=== PATIENT | female | born 1995 | race Asian ===

== ENCOUNTER 2023-04-21 06:15 | Inpatient (IN) | payer BC ==
[~2023-04-21 06:15] MED LIST: CITRIC ACID/SODIUM CITRATE 30 ML UNIT-DOSE CUP PO ONE; ELECTROLYTE-148 SOLN 1,000 ML IV ONE; ELECTROLYTE-148 SOLN 1,000 ML IV SCH
[2023-04-21 06:57] VITALS: BMI 34.2
[2023-04-21] MEDS: ELECTROLYTE-148 SOLN 1,000 ML IV SCH (07:55)
[2023-04-21] MEDS ORDERED: METHYLERGONOVINE MALEATE 0.2 MG/1 ML AMP IM PRN (09:40)
[2023-04-21] MEDS ORDERED: ACETAMINOPHEN 325 MG TABLET (FP) PO PRN (09:40)
[2023-04-21] MEDS ORDERED: FENTANYL CITRATE/PF 50 MCG/ML VIAL ONE (09:45)
[2023-04-21] MEDS ORDERED: morphine SULFATE/PF 1 MG/2 ML (2cc Syringe - QUVA) ONE (09:45)
[2023-04-21] MEDS ORDERED: ONDANSETRON 4 MG/2 ML VIAL ONE (10:07)
[2023-04-21] MEDS ORDERED: DEXAMETHASONE SOD PHOSPHATE 4 MG/1 ML VIAL ONE (10:07)
[2023-04-21 10:58] LABS: CORD BASE EXCESS -3.8 mmol/L (0-2); CORD HCO3 23.7 mmHg (20-29); CORD PCO2 52.4 mmHg (30-78); CORD pH 7.274 (7.14-7.44)
[2023-04-21 11:01] LABS: CORD HCO3 25.1 mmHg (20-29); CORD PCO2 58.9 mmHg (30-78); CORD pH 7.248 (7.14-7.44)
[2023-04-21] MEDS ORDERED: OXYTOCIN 20 UNITS in 0.9% NS 20 UNIT/1,000 ML INFUS.BAG IV ONE (11:15)
[2023-04-21] MEDS: OXYTOCIN 20 UNITS in 0.9% NS 20 UNIT/1,000 ML INFUS.BAG IV SCH ×2 (11:20→23:28)
[2023-04-21] MEDS: ACETAMINOPHEN 1000 MG/100 ML BAG IVPB PRN ×2 (14:19→23:29)
[2023-04-21] MEDS ORDERED: ONDANSETRON 4 MG/2 ML VIAL IVPB PRN (15:05)
[2023-04-21] MEDS ORDERED: IBUPROFEN 800 MG/8 ML IJ IVPB PRN (19:55)
[2023-04-21] MEDS ORDERED: oxyCODONE HCL 5 MG TABLET PO PRN (21:41)
[2023-04-22 08:07] LABS: BASO % 0.5 % (0-2.0); EOS % 0.5 % (0-4.5); HEMATOCRIT 34.3 % (32.4-45.2); LYMPH % 18.8 % (8-40); MCHC 32.2 g/dl (32.0-36.0); MEAN PLT VOLUME 8.3 fl (7.5-11.1); MONO % 7.2 % (3.8-10.2); PLATELET COUNT 254 10^3/uL (134-434); RBC 3.81 M/mm3 (3.60-5.2); RDW 15.4 % (11.6-15.6); WHITE BLOOD COUNT 18.5 K/mm3 (4.0-10.0)
[2023-04-22] MEDS ORDERED: BISACODYL 10 MG SUPP.RECT RC PRN (09:41)
[2023-04-22] MEDS: IBUPROFEN 600 MG TABLET (FP) PO PRN ×2 (12:08→21:29)
[2023-04-22 13:46] LABS: POC NITRAZINE POS
[2023-04-22] MEDS: SIMETHICONE 80 MG TAB.CHEW (FP) PO PRN (21:29)
[2023-04-22 21:57] VITALS: RESP 18
[2023-04-23] MEDS: SIMETHICONE 80 MG TAB.CHEW (FP) PO PRN (20:11)
[2023-04-23] MEDS: IBUPROFEN 600 MG TABLET (FP) PO PRN (20:11)
[2023-04-24] MEDS: IBUPROFEN 600 MG TABLET (FP) PO PRN (06:22)
[2023-04-24] MEDS: SIMETHICONE 80 MG TAB.CHEW (FP) PO PRN (06:22)
[2023-04-24] MEDS: ELECTROLYTE-148 SOLN 1,000 ML IV SCH (07:40)
[2023-04-24 08:44] VITALS: BP 95/62; PULSE 69; TEMP 98.1
[2023-04-24 08:45] LABS: BASO % 0.6 % (0-2.0); EOS % 2.3 % (0-4.5); HEMATOCRIT 35.7 % (32.4-45.2); HEMOGLOBIN 11.5 GM/dL (10.7-15.3); LYMPH % 19.8 % (8-40); MCH 28.8 pg (25.7-33.7); MCHC 32.1 g/dl (32.0-36.0); MEAN CELL VOLUME 89.6 fl (80-96); MEAN PLT VOLUME 7.9 fl (7.5-11.1); MONO % 7.1 % (3.8-10.2); NEUT % 70.2 % (42.8-82.8); PLATELET COUNT 293 10^3/uL (134-434); RBC 3.99 M/mm3 (3.60-5.2); RDW 15.7 % (11.6-15.6); WHITE BLOOD COUNT 12.8 K/mm3 (4.0-10.0)
== END 2023-04-24 14:45 | disposition home or self-care (01) | DRG 788 ==
LOC: JLDR 06:15 → J3W 12:50
PROVIDERS: ADMIT Obstetrics & Gynecology; ATTEND Obstetrics & Gynecology
PROC: 10D00Z1 Extraction of Products of Conception, Low, Open Approach (ICD-10-PCS; principal; 2023-04-21)
DX: O32.1XX0 Maternal care for breech presentation, not applicable or unspecified (principal); O69.81X0 Labor and delivery complicated by cord around neck, without compression, not applicable or unspecified; Z3A.38 38 weeks gestation of pregnancy; Z37.0 Single live birth
CPT/HCPCS: 36415; 36600; 82803; 83986-QW; 85025; 88307-TC

== ENCOUNTER 2023-10-27 01:08 | Emergency (ER) | payer BC ==
[2023-10-27 01:15] VITALS: BMI 31.1
[2023-10-27] MEDS ORDERED: ACETAMINOPHEN INJECTION 100 ML IVPB ONE (02:05)
[2023-10-27] MEDS ORDERED: MAG HYDROX/AL HYDROX/SIMETH 30 ML UNIT-DOSE CUP ONE (02:05)
[2023-10-27] MEDS ORDERED: FAMOTIDINE 20 MG/50 ML IVPB 20 MG/50 ML MG IVPB ONE (02:06)
[2023-10-27] MEDS: MAG HYDROX/AL HYDROX/SIMETH 30 ML UNIT-DOSE CUP PO ONE (02:06)
[2023-10-27] MEDS: ACETAMINOPHEN 1000 MG/100 ML BAG IVPB ONE (02:07)
[2023-10-27 02:12] LABS: BASO % 0.8 % (0-2.0); EOS % 3.4 % (0-4.5); HEMOGLOBIN 12.3 GM/dL (10.7-15.3); LYMPH % 31.6 % (8-40); MCH 28.9 pg (25.7-33.7); MCHC 33.4 g/dl (32.0-36.0); MEAN CELL VOLUME 86.5 fl (80-96); MEAN PLT VOLUME 6.9 fl (7.5-11.1); MONO % 8.6 % (3.8-10.2); NEUT % 55.6 % (42.8-82.8); PLATELET COUNT 404 10^3/uL (134-434); RBC 4.28 M/mm3 (3.60-5.2); RDW 13.4 % (11.6-15.6); WHITE BLOOD COUNT 12.8 K/mm3 (4.0-10.0)
[2023-10-27 02:16] LABS: EPI CELLS >36 /uL (0-25.1); HYALINE CASTS 0 /uL (0-3.1); URINE APPEARANCE CLEAR; URINE BACTERIA 1153 /uL (0-1359); URINE BILIRUBIN NEGATIVE (NEGATIVE); URINE COLOR YELLOW; URINE GLUCOSE (UA) NEGATIVE (NEGATIVE); URINE KETONE NEGATIVE (NEGATIVE); URINE LEUK ESTERASE 1+ (NEGATIVE); URINE NITRITE NEGATIVE (NEGATIVE); URINE PROTEIN NEGATIVE (NEGATIVE); URINE RBC 37 /uL (0-23.9); URINE UROBILINOGEN 0.2 mg/dL (0.2-1.0); URINE WBC 82 /uL (0-25.8)
[2023-10-27] MEDS: FAMOTIDINE 20 MG/50 ML IVPB 20 MG/50 ML MG IVPB ONE (02:18)
[2023-10-27] MEDS: SODIUM CHLORIDE 1,000 ML IV STA (02:18)
[2023-10-27 02:31] LABS: POTASSIUM 3.7 mmol/L (3.5-5.1)
[2023-10-27 02:33] LABS: CALCIUM 8.9 mg/dL (8.5-10.1)
[2023-10-27 02:34] LABS: ALBUMIN 3.5 g/dl (3.4-5.0); BLOOD UREA NITROGEN 17.4 mg/dL (7-18)
[2023-10-27 02:38] LABS: TOT PROT 7.3 g/dl (6.4-8.2)
[2023-10-27 02:39] LABS: BILIRUBIN,TOTAL 0.2 mg/dL (0.2-1)
[2023-10-27 05:54] VITALS: BP 105/75; PULSE 62; RESP 18; TEMP 97.4
[2023-10-27] MEDS ORDERED: CEFTRIAXONE 1 GM/50 ML BAG ONE (06:00)
[2023-10-27] MEDS: CEFTRIAXONE 1,000 MG in DEXTROSE 5%-WATER - 50 ML IVPB ONE (06:05)
== END 2023-10-27 10:00 | disposition home or self-care (01) ==
LOC: JER 01:08
PROC: 3E03329 Introduction of Other Anti-infective into Peripheral Vein, Percutaneous Approach (ICD-10-PCS; principal; 2023-10-27)
PROC: 3E033GC Introduction of Other Therapeutic Substance into Peripheral Vein, Percutaneous Approach (ICD-10-PCS; 2023-10-27)
PROC: 3E033NZ Introduction of Analgesics, Hypnotics, Sedatives into Peripheral Vein, Percutaneous Approach (ICD-10-PCS; 2023-10-27)
DX: R10.13 Epigastric pain (principal); R11.10 Vomiting, unspecified; K80.80 Other cholelithiasis without obstruction; Z20.822 Contact with and (suspected) exposure to COVID-19
CPT/HCPCS: 0241U-QW; 36415; 74177-TC; 76705-TC; 80053; 81003; 83690; 83735; 84484; 84703; 85025; 87086; 93005; 93010; 99285-25; J0131

== ENCOUNTER 2023-11-12 04:15 | Day surgery (SDC) | payer BC ==
[2023-11-05 12:14] VITALS: BMI 31.1
[2023-11-12] MEDS ORDERED: CEFAZOLIN 2 GM in DEXTROSE 5%-WATER - 50 ML IVPB ONE (06:01)
[2023-11-12] MEDS ORDERED: ceFAZolin SODIUM 1 GM VIAL ONE (06:18)
[2023-11-12] MEDS ORDERED: PROPOFOL 40 ML ONE (07:25)
[2023-11-12] MEDS ORDERED: ONDANSETRON 4 MG/2 ML VIAL ONE ×2 (07:25→12:12)
[2023-11-12] MEDS ORDERED: LIDOCAINE HCL/PF 2% SDV 5ML VIAL ONE (07:25)
[2023-11-12] MEDS ORDERED: MIDAZOLAM HCL 2 MG/2 ML SINGLE DOSE VIAL ONE (07:26)
[2023-11-12] MEDS ORDERED: ACETAMINOPHEN INJECTION 100 ML IVPB ONE (07:28)
[2023-11-12] MEDS ORDERED: INDOCYANINE GREEN 25 MG/10 ML VIAL IVPUSH ONE (07:36)
[2023-11-12] MEDS ORDERED: BUPIVACAINE HCL/PF 0.5% (5MG/ML) 10 ML VIAL ONE (07:37)
[2023-11-12] MEDS ORDERED: oxyCODONE HCL 5 MG TABLET PO PRN (07:58)
[2023-11-12] MEDS ORDERED: ONDANSETRON 4 MG/2 ML VIAL IVPUSH PRN (07:58)
[2023-11-12] MEDS ORDERED: LACTATED RINGERS SOLUTION 1,000 ML IV SCH (08:00)
[2023-11-12] MEDS: ceFAZolin SODIUM 1 GM VIAL IVPB ONE (08:27)
[2023-11-12] MEDS ORDERED: ROCURONIUM BROMIDE 50 MG/5 ML SYRINGE ONE (08:42)
[2023-11-12] MEDS: BUPIVACAINE HCL/PF 0.5% (5 MG/ML) 30 ML VIAL IJ ONE ×2 (08:49)
[2023-11-12] MEDS ORDERED: SUGAMMADEX SODIUM 200 MG/2 ML VIAL ONE (09:49)
[2023-11-12] MEDS ORDERED: KETOROLAC TROMETHAMINE 30 MG/1 ML VIAL ONE (10:00)
[2023-11-12 12:54] VITALS: TEMP 97.8
[2023-11-12 14:07] VITALS: BP 94/60; PULSE 70; RESP 19
[2023-11-12] MEDS ORDERED: oxyCODONE HCL 5 MG TABLET ONE (15:01)
[2023-11-12] MEDS: oxyCODONE HCL 5 MG TABLET PO PRN (15:09)
== END 2023-11-12 15:38 | disposition home or self-care (01) ==
LOC: JASU-SURG 04:15
PROVIDERS: ATTEND Surgery
PROC: 8E0W4CZ Robotic Assisted Procedure of Trunk Region, Percutaneous Endoscopic Approach (ICD-10-PCS; 2023-11-12)
PROC: 0FT44ZZ Resection of Gallbladder, Percutaneous Endoscopic Approach (ICD-10-PCS; principal; 2023-11-12 08:00)
DX: K80.10 Calculus of gallbladder with chronic cholecystitis without obstruction (principal)
CPT/HCPCS: 47562; S2900; 81025; 88304-TC; 94760; J0131

== ENCOUNTER 2024-03-23 20:41 | Emergency (ER) | payer BC ==
[2024-03-23 20:49] VITALS: BMI 31.1
[2024-03-23] MEDS ORDERED: ACETAMINOPHEN INJECTION 100 ML IVPB ONE (22:07)
[2024-03-23] MEDS ORDERED: FAMOTIDINE 20 MG/50 ML IVPB 20 MG/50 ML MG IVPB ONE (22:07)
[2024-03-23 22:18] LABS: BASO % 0.3 % (0-2.0); EOS % 0.1 % (0-4.5); HEMATOCRIT 38.6 % (32.4-45.2); LYMPH % 11.2 % (8-40); MCH 28.7 pg (25.7-33.7); MCHC 33.7 g/dl (32.0-36.0); MEAN CELL VOLUME 85.4 fl (80-96); MEAN PLT VOLUME 6.8 fl (7.5-11.1); MONO % 4.9 % (3.8-10.2); NEUT % 83.5 % (42.8-82.8); PLATELET COUNT 412 10^3/uL (134-434); RBC 4.53 M/mm3 (3.60-5.2); RDW 13.9 % (11.6-15.6); WHITE BLOOD COUNT 19.9 K/mm3 (4.0-10.0)
[2024-03-23] MEDS: ACETAMINOPHEN 1000 MG/100 ML BAG IVPB ONE (22:19)
[2024-03-23] MEDS: FAMOTIDINE 20 MG/50 ML IVPB 20 MG/50 ML MG IVPB ONE (22:19)
[2024-03-23 22:21] LABS: PH,URINE >= 9.0 (5.0-8.0); URINE APPEARANCE TURBID; URINE BILIRUBIN NEGATIVE (NEGATIVE); URINE COLOR YELLOW; URINE GLUCOSE (UA) NEGATIVE (NEGATIVE); URINE KETONE NEGATIVE (NEGATIVE); URINE LEUK ESTERASE NEGATIVE (NEGATIVE); URINE NITRITE NEGATIVE (NEGATIVE); URINE PROTEIN NEGATIVE (NEGATIVE); URINE UROBILINOGEN 0.2 mg/dL (0.2-1.0)
[2024-03-23 22:27] LABS: INR 1.13 (0.83-1.09); PROTHROMBIN TIME (PATIENT) 12.9 SEC (9.7-13.0)
[2024-03-23 22:39] LABS: POTASSIUM 3.7 mmol/L (3.5-5.1)
[2024-03-23] MEDS ORDERED: MORPHINE SULFATE 2 MG/ML SYRINGE ONE (22:39)
[2024-03-23 22:41] LABS: CALCIUM 8.9 mg/dL (8.5-10.1)
[2024-03-23 22:42] LABS: ALBUMIN 3.8 g/dl (3.4-5.0); BLOOD UREA NITROGEN 8.2 mg/dL (7-18)
[2024-03-23 22:45] LABS: CREATININE 0.8 mg/dL (0.55-1.3)
[2024-03-23 22:46] LABS: BILIRUBIN,TOTAL 0.4 mg/dL (0.2-1); TOT PROT 7.7 g/dl (6.4-8.2)
[2024-03-23] MEDS: morphine CARPU-JECT 2 MG/1 ML DISP.SYRIN IVPUSH ONE (22:47)
[2024-03-23] MEDS ORDERED: SUCRALFATE 1 GM TABLET (FP) ONE (23:39)
[2024-03-24] MEDS: SUCRALFATE 1 GM TABLET (FP) PO ONE (00:16)
[2024-03-24 04:38] VITALS: RESP 18
[2024-03-24 07:46] VITALS: BP 91/71; PULSE 61; TEMP 98.2
[2024-03-24] MEDS: SODIUM CHLORIDE 500 ML IV STA (07:53)
== END 2024-03-24 08:58 | disposition home or self-care (01) ==
LOC: JER 20:41
DX: R10.32 Left lower quadrant pain (principal); R10.13 Epigastric pain; R11.0 Nausea
CPT/HCPCS: 0241U-QW; 36415; 74177-TC; 76830-TC; 80053; 81003; 83690; 84703; 85025; 85610; 85730; 86850; 86900; 86901; 87086; 99285-25; J0131; Q9967